=== PATIENT | male | born 1980 | race Caucasian/White ===

== ENCOUNTER 2020-07-05 05:46 | Emergency (ER) | payer MEDICAID, SELFPAY ==
[2020-07-05 05:53] VITALS: BP 160/101; PULSE 70; RESP 16; TEMP 36.9; O2SAT 97; BMI 33.3
--- NOTE | 2020-07-05 06:28 | PC.NURSE ---
at bedside for primary eval.
--- NOTE | 2020-07-05 06:32 | ED.DENTAL ---
HPI - Dental/Oral General Chief complaint: Dental/Oral Stated complaint: Jaw Pain Time Seen by Provider: 07/05/20 06:32 Source: patient Mode of arrival: ambulatory History of Present Illness HPI Narrative: This is a 39-year-old male with known history of TMJ that he states ?flares up once a year typically around spring?. He denies any associated sore throat, ear pain, headache, fevers, chills, or dental pain. Patient states that most often is from grinding his teeth at night. Related Data Previous Rx's Medication Instructions Recorded ketorolac 10 mg PO Q6H PRN 5 Days #20 tab 07/05/20 Allergies Allergy/AdvReac Type Severity Reaction Status Date / Time No Known Allergies Allergy Unverified 07/05/20 05:56 Review of Systems Review of Systems: Pertinent positives and negatives as stated in HPI 10 point review of systems is otherwise negative. PMFSH Past Medical History Medical History (Updated 07/05/20 @ 06:35 by Winnie Espinal MD) TMJ (temporomandibular joint disorder) Social History Social History Advance Directives: No Physical Exam Vital Signs: Vital Signs: Last Vital Signs Temp 98.4 F 07/05/20 05:53 Pulse 70 07/05/20 05:53 Resp 16 07/05/20 05:53 BP 160/101 H 07/05/20 05:53 Pulse Ox 97 07/05/20 05:53 Body Mass Index 33.3 VITAL SIGNS: Reviewed. GENERAL: Well developed, well nourished, in no acute distress. HEAD: Normocephalic/atraumatic, EYES: PERRLA, EOMI EARS: Ext canals without abnormality, TMs non-bulging and non-erythematous NOSE: Nares patent bilateral OROPHARYNX: no oral lesions noted, posterior pharynx clear, on palpation at the right TMJ there is noted clicking when patient opens mouth but no evidence to support dislocation, no dental caries noted NECK: Supple, no adenopathy LUNGS: Normal breath sounds. No adventitious sounds or accessory muscle use. SpO2<97> CARDIOVASCULAR: Regular rate and rhythm without noted murmurs ABDOMEN: Soft, non-tender, non-distended with bowel sounds. NEUROLOGIC: Alert and oriented x 4. Course Course Course Narrative: This is a 39-year-old male with acute on chronic exacerbation of known right TMJ arthritis. Patient received combination of analgesics with good pain control and was discharged with prescription for Toradol and instructions to follow-up with dentist. Discharge Plan Discharge Clinical Impression: TMJ arthritis Qualifiers: Laterality: right Qualified Code(s): M26.641 - Arthritis of right temporomandibular joint Patient Disposition: Home, Self-Care Instructions: Temporomandibular Disorder (ED) Additional Instructions: 1. Tylenol 1000 mg, orally, every 6 hours as needed for pain control. Do not exceed 4000 mg within 24 hours. 2. Please follow-up with your dentist for further re-evaluation and outpatient treatment. Do not hesitate to return to the emergency room should you experience any acute worsening of your symptoms. Prescriptions: New ketorolac 10 mg tablet 10 mg PO Q6H PRN (Reason: pain) 5 Days Qty: 20 RF: 0 Referrals: Physician,None [Primary Care Provider] - 2 days
[2020-07-05] MEDS: Acetaminophen 325 MG TABLET 650 MG PO (06:36)
[2020-07-05] MEDS: Acetaminophen 325 MG TABLET PO (06:36)
[2020-07-05] MEDS: Ketorolac Tromethamine 15 MG/ML VIAL IM (06:36)
--- NOTE | 2020-07-05 06:42 | PC.NURSE ---
Verbal order by MD for medications. MD requesting this RN verbal order 650 mg and 325 mg of Tylenol. Pt medicated per JUN. Pt aware of pending discharge.
== END 2020-07-05 06:44 | disposition home or self-care (01) ==
PROVIDERS: Emergency Provider Student in an Organized Health Care Education/Training Program
DX: M26.641 Arthritis of right temporomandibular joint (principal); Z79.899 Other long term (current) drug therapy
CPT/HCPCS: 96372; 99283; 99284; J1885

== ENCOUNTER 2020-07-06 14:27 | Emergency (ER) | payer MEDICAID, SELFPAY ==
[2020-07-06 14:41] VITALS: BP 125/75; PULSE 71; RESP 18; TEMP 36.7; O2SAT 98; BMI 34.1
--- NOTE | 2020-07-06 14:58 | ED_ITS ---
HPI - General Adult General Chief complaint: General Medical <MILY Hamilton - Last Filed: 07/11/20 11:26> Stated complaint: TMJ PAIN <MILY Hamilton Last Filed: 07/11/20 11:26> Time Seen by Provider: 07/06/20 14:58 <MILY Hamilton - Last Filed: 07/11/20 11:26> History of Present Illness HPI narrative: Patient complains of flare of TMJ pain on the right side of his jaw which he gets roughly every year, it started 3 days ago he came to this hospital 2 days ago and was given Toradol pills and Tylenol but he says the problem is he is up all night with the discomfort and the problem is pain he denies fever no difficulty swallowing no difficulty breathing <MILY Hamilton Last Filed: 07/11/20 11:26> Related Data Home medications: Previous Rx's Medication Instructions Recorded ketorolac 10 mg PO Q6H PRN 5 Days #20 tab 07/05/20 cyclobenzaprine 10 mg PO TID PRN #14 tab 07/06/20 oxycodone-acetaminophen [Percocet] 1 tab PO Q4-6H PRN #14 tab 07/06/20 <MILY Hamilton Last Filed: 07/11/20 11:26> Allergies/adverse reactions: Allergies Allergy/AdvReac Type Severity Reaction Status Date / Time No Known Allergies Allergy Unverified 07/05/20 05:56 <MILY Hamilton Last Filed: 07/11/20 11:26> Review of Systems Review of Systems: Positive for TMJ pain Negatives are no fever no chills no dizziness no weakness no confusion no headache no ear pain no difficulty breathing or swallowing no sore throat no toothache no dental pain, no dental swelling, no difficulty breathing or swallowing, no chest pain or shortness of breath no neck pain no rash no numbness or weakness <MILY Hamilton Last Filed: 07/11/20 11:26> [facility] Past Medical History Attestation statement: The following information was validated with the patient. <MILY Hamilton Last Filed: 07/11/20 11:26> [facility] Narrative: Patient gets TMJ flare up every 1-2 years, last time was over year ago <MILY Hamilton Last Filed: 07/11/20 11:26> Source: nursing notes reviewed <MILY Hamilton - Last Filed: 07/11/20 11:26> Medical History: Medical History (Updated 07/07/20 @ 00:01 by Diane Correa) TMJ (temporomandibular joint disorder) <MILY Hamilton - Last Filed: 07/11/20 11:26> Social History Social History: Social History Advance Directives: No Advance Directives Information Provided: No <MILY Hamilton - Last Filed: 07/11/20 11:26> Physical Exam Vital Signs: Vital Signs: Last Vital Signs Temp 98.0 F 07/06/20 14:41 Pulse 71 07/06/20 14:41 Resp 18 07/06/20 14:41 BP 125/75 07/06/20 14:41 Pulse Ox 98 07/06/20 14:41 Body Mass Index 34.1 <MILY Hamilton - Last Filed: 07/11/20 11:26> Vital Signs: Last Vital Signs Temp 98.0 F 07/06/20 14:41 Pulse 71 07/06/20 14:41 Resp 18 07/06/20 14:41 BP 125/75 07/06/20 14:41 Pulse Ox 98 07/06/20 14:41 Body Mass Index 34.1 <Willi Lofton MD - Last Filed: 07/24/20 13:47> General appearance no acute distress,, relaxed cooperative vein O x3 Head is normocephalic atraumatic Ears are normal with normal tympanic membranes no redness no canal narrowing The TMJ exam is there is tenderness and clicking on both sides when he opens and closes his mouth, no swelling no redness The pharynx is clear there is no dental tenderness or swelling The neck is supple The chest is clear to auscultation bilaterally full symmetrically breath sounds Extremities full range of motion x4 Skin no rashes Neuro no focal deficits <MILY Hamilton - Last Filed: 07/11/20 11:26> Course Course Course Narrative: Exam is consistent with TMJ inflammation, patient has used Flexeril with good results in the past and Percocet for breakthrough pain, [employer] does not show any evidence of narcotic abuse or dependence and patient is given scripts for Percocet and Flexeril <MILY Hamilton - Last Filed: 07/11/20 11:26> I have reviewed the chart <Willi Lofton MD - Last Filed: 07/24/20 13:47> Discharge Plan Discharge Clinical Impression: TMJ (temporomandibular joint disorder) <MILY Hamilton - Last Filed: 07/11/20 11:26> Patient Disposition: Home, Self-Care <MILY Hamilton - Last Filed: 07/11/20 11:26> Additional Instructions: Follow with primary doctor and dentist I added stronger pain killers and a muscle relaxer which have helped to in the past Return any concerns <MILY Hamilton - Last Filed: 07/11/20 11:26> Prescriptions: New cyclobenzaprine 10 mg tablet 10 mg PO TID PRN (Reason: muscle spasm) Qty: 14 RF: 0 oxycodone-acetaminophen [Percocet] 5-325 mg tablet 1 tab PO Q4-6H PRN (Reason: pain) Qty: 14 RF: 0 No Action ketorolac 10 mg tablet 10 mg PO Q6H PRN (Reason: pain) 5 Days Qty: 20 RF: 0 <MILY Hamilton - Last Filed: 07/11/20 11:26> Interventions: ED Discharge Assessment Last Done: 07/06/20 15:37 <MILY Hamilton - Last Filed: 07/11/20 11:26> Discharge Date/Time: 07/06/20 15:41 <MILY Hamilton - Last Filed: 07/11/20 11:26>
== END 2020-07-06 15:41 | disposition home or self-care (01) ==
LOC: HO.ED 15:23
PROVIDERS: Emergency Provider Emergency Medicine
DX: M26.601 Right temporomandibular joint disorder, unspecified (principal)
CPT/HCPCS: 99283